=== PATIENT | female | born 1995 | race Caucasian/White ===

== ENCOUNTER 2016-10-08 05:37 | Inpatient (IN) | payer BC ==
[2016-10-08] MEDS ORDERED: Misoprostol 400 MCG (4 X 100 MCG TAB) RECTAL PRN ×2 (06:09→16:08)
[2016-10-08] MEDS ORDERED: Lactated Ringers 500 ML IV ONE (06:09)
[2016-10-08] MEDS ORDERED: Lidocaine 1% 30 ML SDV INJECT PRN (06:09)
[2016-10-08] MEDS ORDERED: Carboprost Tromethamine 250 MCG/1 ML Amp IM PRN ×2 (06:09→16:08)
[2016-10-08] MEDS ORDERED: Ondansetron 4 MG/2 ML SDV IV PRN (06:09)
[2016-10-08] MEDS ORDERED: Acetaminophen 325 MG Tab PO PRN ×2 (06:09→16:08)
[2016-10-08] MEDS ORDERED: Sodium Chloride 0.9% 10 ML Syringe FLUSH PRN ×2 (06:09→16:08)
[2016-10-08] MEDS ORDERED: Methylergonovine 0.2 MG/1 ML Amp IM PRN (06:09)
[2016-10-08] MEDS ORDERED: Oxytocin/Normal Saline 30 UNIT/500 ML BAG IV SCH (06:15)
[2016-10-08] MEDS ORDERED: fentaNYL 100 MCG/2 ML SDV ONE (07:34)
[2016-10-08] MEDS: Lactated Ringers 1,000 ML IV SCH ×2 (07:45→11:39)
--- NOTE | 2016-10-08 08:12 | PCM.PRNOTE ---
- Free Text/Narrative Note: Called to provide labor pain relief via intrathecal to this patient. After monitors on and consent signed, proceeded. With patient in sitting position, sterile prep/drape. Skin wheal at L3-4 with 1% Lido. LP X 1 at L3-4 with 25g pencan spinal needle, via 20g introducer. Positive, clear, free flowing CSF. No heme, no paresthesia. Then 6mg mpf hyperbaric spinal 0.75% marcaine, 20mcg sufenta, 30mcg fentanyl, 0.4ml preservative free normal saline, plus epi wash given intrathecally. Pt then supine, block to around T4. Pt's B/P and FHT's remained stable after, and patient reported no discomfort with subsequent contractions.
--- NOTE | 2016-10-08 08:34 | PCM.POSTAN ---
POST ANESTHESIA ASSESSMENT - MENTAL STATUS Mental Status: alert - VITAL SIGNS Pulse Rate: 76 Resp Rate: 16 Blood Pressure: 107/45 Temperature: 98.3 C - RESPIRATORY Respiratory Status: respiratory rate WNL - CARDIOVASCULAR CV Status: pulse rate WNL - GASTROINTESTINAL GI Status: no symptoms - PAIN Pain Score: 0 - POST OP HYDRATION Hydration Status: adequate & stable - OBSERVATIONS Free Text/Narrative:: Pt without c/o. No PDPH, no PONV, no c/o back pain. No post anesthesia complications noted.
[2016-10-08] MEDS ORDERED: fentaNYL 100 MCG/2 ML SDV ITHECAL ONE (14:49)
[2016-10-08] MEDS ORDERED: Benzocaine/Menthol 20%-0.5% Spray 56 GM Canister TOP PRN (16:08)
[2016-10-08] MEDS ORDERED: Oxytocin 10 Units/1 ML SDV IM PRN (16:08)
[2016-10-08] MEDS ORDERED: Zolpidem 5 MG Tab PO PRN (16:08)
[2016-10-08] MEDS ORDERED: Simethicone 80 MG Tab.Chew PO PRN (16:08)
[2016-10-08] MEDS: Ibuprofen 800 MG Tab PO PRN (17:33)
--- NOTE | 2016-10-08 19:49 | HP ---
HISTORY: This patient is a 21-year-old, 1, para 0 patient, who is now at 40 weeks 2 days gestation. She is seen in the Labor and Delivery area and examined before her delivery takes place. She is in active labor. She does come to Labor and Delivery early in the morning and was approximately 5 cm dilated with the nurse's initial exam. She did experience spontaneous rupture of membranes while in the hospital at about 5:30 a.m. this morning and thin meconium was noted at that time. She is GBS negative. Her thin meconium was thought to progress somewhat and was possibly moderate meconium for the last couple of hours before delivery. She also was known to be Rh negative, on sensitized. She does experience good movement recently and heart tones are category 1. She has nice accelerations and moderate variability. She denies any other significant complications. Please see the EHR as it pertains to the rest of her course in the [facility]. The patient has been followed by Dr. Lucia. ALLERGIES: Penicillin, amoxicillin and sulfa medications. PAST MEDICAL HISTORY: She denies any knowledge of heart, lung, liver, or kidney disease. MEDICATIONS: At present, consist of vitamins. FAMILY HISTORY: Noncontributory. SOCIAL HISTORY: The patient is a nonsmoker and does not use alcohol or any illicit drugs. PHYSICAL EXAMINATION: Please see the EHR for further vital sign detail, which reveals normal vital signs on admission. HEENT: The sclerae are nonicteric. LUNGS: Clear to auscultation. HEART: Regular rhythm without murmur. ABDOMEN: Gravid with heart tones present in the baseline range of about 118 to 122. The heart tones are category 1 with moderate variability and nice accelerations. Estimated weight is approximately 7 pounds 4 ounces. Initial cervical exam by the nurses revealed it to be about 5 cm dilated with vertex presenting. My examination later on is done when she is actually 9 cm to completely dilated with vertex at +1 station, 100% effaced. EXTREMITIES: Reveal trace to 1+ pedal edema. NEUROLOGIC: Grossly intact. IMPRESSION: Term at 40 weeks 2 days by good dating and ultrasounds. She is in active labor. She does have thin meconium to sometimes possibly moderate meconium. heart tones remained category I. The patient will continue pushing, and we do anticipate spontaneous vaginal delivery. Thorough suctioning of the baby will be done while the head is on the perineum because of the meconium-stained fluid. All of her questions have been answered. Please see the admission orders. The patient is Rh negative. [facility] /[id number]
--- NOTE | 2016-10-08 21:28 | DEL ---
DATE: 10/08/2016 DESCRIPTION: Allie has progressed on with even better pushing effort during the latter part of her 2nd stage of labor. Her total 2nd stage of labor is approximately 3 hours and 15 minutes. Heart tones have remained category 1 at all times. She did have only 1 episode of a variable deceleration while she was pushing and this went down to the 60 range for approximately 60 to 70 seconds with good recovery and good variability. This happened at around 12:30 p.m., or so. Please see the electronic health record for further time detail. She did proceed on to have a spontaneous vaginal delivery of a viable female, who had scores of 8 and 9. The weight is pending at this time. The patient did have thin meconium noticed at about 0530 hours earlier this morning when the ruptured membranes occurred spontaneously, and during the last hour or 2 of her pushing effort, we did see a bit more thickening or moderate degree of meconium- stained fluid. As mentioned above, category 1 heart tones were present. She did have the spontaneous vaginal delivery from the occiput anterior position. The baby girl was immediately suctioned as thoroughly as possible on delivery and handed off to Dr. Melo and nursery nurses who agreed with good scores of 8 and 9. A sample of cord blood was obtained and submitted to the lab. The patient is also noted to be Rh negative by history. The placenta was delivered spontaneously and intact from the shiny Nevarez position. Estimated blood loss for the delivery was approximately 200 mL. There were no vaginal or perineal lacerations. IV Pitocin was run in the 3rd stage of labor with the uterus yony down nicely. Her vital signs have been stable at all times. The patient has proceeded on and tolerated this procedure very nicely. She remained stable in the area. Her baby also continues to do well. I have personally verified that the needle, sponge, and instrument count is correct. [facility] /[id number]
[2016-10-08] MEDS: Docusate Sodium 100 MG Cap PO PRN (22:05)
[2016-10-09] MEDS: Docusate Sodium 100 MG Cap PO PRN (08:42)
[2016-10-09] MEDS: Prenatal Multivitamin with Calcium/Folic Acid/Iron Tab PO SCH (08:42)
[2016-10-09] MEDS: Ibuprofen 800 MG Tab PO PRN ×2 (08:42→18:30)
--- NOTE | 2016-10-09 14:11 | PN ---
DATE: 10/09/2016 LOCATION: [facility]. SUBJECTIVE: Allie and her baby are doing well today. Her baby girl had scores of 8 and 9 yesterday. She denies any problems whatsoever today. She is ambulating well and tolerating diet. OBJECTIVE: Her vital signs are normal including being afebrile. Her extremity exam is negative. Her fundus is firm. IMPRESSION: Stable course. PLAN: She will continue with progressive ambulation and please see the orders. Her indirect Jass and Rh testing is still pending. She will be discharged home tomorrow on Monday. Further follow up instructions will be discussed with her at the time of discharge. [facility] /[id number]
--- NOTE | 2016-10-09 18:42 | PCM.POSTAN ---
POST ANESTHESIA ASSESSMENT - MENTAL STATUS Mental Status: alert - VITAL SIGNS Pulse Rate: 74 SaO2: 97 Resp Rate: 18 Blood Pressure: 122/57 Temperature: 36.2 C - RESPIRATORY Respiratory Status: respiratory rate WNL - CARDIOVASCULAR CV Status: pulse rate WNL - GASTROINTESTINAL GI Status: no symptoms - PAIN Pain Score: 0 - POST OP HYDRATION Hydration Status: adequate & stable - OBSERVATIONS Free Text/Narrative:: Pt without c/o. No c/o PONV, no c/o PDPH. No post anesthesia complications noted.
[2016-10-10 09:07] VITALS: BP 126/77
[2016-10-10] MEDS: Prenatal Multivitamin with Calcium/Folic Acid/Iron Tab PO SCH (12:29)
[2016-10-10] MEDS: Docusate Sodium 100 MG Cap PO PRN (12:29)
[2016-10-10] MEDS: Ibuprofen 800 MG Tab PO PRN (12:29)
--- NOTE | 2016-10-12 04:06 | DISCH ---
LOCATION: . HISTORY OF PRESENT ILLNESS: This is a very pleasant, 21-year-old, 1, now para 1 patient, who was at 40 weeks 2 days gestation, has been followed by Dr. Lucia for most of the . Her course has been quite unremarkable. She is known to be GBS negative. She was at 40 weeks 2 days gestation. She did enter Labor and Delivery area early in the morning on Monday10/08/2016 in labor. She did have spontaneous rupture of membranes shortly after coming to the hospital at about 5:30 a.m., and this was thin meconium. Her heart tones have been category 1 during the intrapartum course. She does have allergies penicillin, amoxicillin, and sulfa medications. She also is Rh negative, unsensitized however. HOSPITAL COURSE: She has progressed on very nicely during the course of her labor. She did require about 3 hours and 15 minutes of second stage of labor pushing. She did end up having a very nice spontaneous vaginal delivery and had a baby girl, who had scores of 8 and 9. There was some moderate meconium at delivery and the baby was suctioned very very thoroughly. The baby's weight was later reported as 7 pounds. As mentioned above, she has had category 1 heart tones at all times during the course of her labor. She did have one little incidental spontaneous deceleration at about 12:30 p.m., when she was pushing when the heart tones went down to 60 for 60 to 70 seconds with good recovery after that and good variability and continuing on to have a category 1 heart tones after that. No episiotomy was necessary. Her estimated blood loss was approximately 200 mL. There were no lacerations. Please see the electronic health record for my admission history and physical as well as for my delivery note. She has continued to do well and is discharged home on 10/10/2016 in very good condition. Her diet at discharge is regular. She is ambulating very well and tolerating diet etc. Her examination at discharge also reveals the extremities to be negative. She remains afebrile and her fundus is firm. She is having no problems with her breasts or her legs. The baby is breast feeding quite satisfactorily, I understand. DISCHARGE INSTRUCTIONS: Other discharge instructions consist of please avoiding intercourse for approximately 6 weeks and avoid heavy lifting or strenuous physical activity for approximately 6 weeks[address] She will see Dr. Lucia in the office in approximately 6 weeks and possibly even for a short visit this coming week. Please see the baby's record for the baby's followup appointment. The patient was instructed to please call us at once if any fever, excess pain, excess bleeding, or leg or extremity or breast problems etc. She was encouraged to do progressive ambulation at home. DISCHARGE MEDICATIONS: Consisted of; 1. Ibuprofen or Tylenol p.r.n. 2. She also will use Colace p.r.n. 3. She will continue to take her vitamin with iron. The importance of adequate hydration and healthy well-balanced nutritional measures were again reviewed and discussed with her. FINAL DIAGNOSES: 1. Term , delivered. 2. Rh negative, unsensitized. PROCEDURES: Spontaneous vaginal delivery having viable baby girl with scores of 8 and 9 on 10/08/[address] Carter. [facility] /[id number]
== END 2016-10-10 14:50 | disposition home or self-care (01) | DRG 560 ==
LOC: EDBD → DL.OBCHECK 05:37 → DL.OB 05:57 → OBSVTOIN 13:32
PROVIDERS: ADMIT Family Medicine; ATTEND Family Medicine
PROC: 10E0XZZ Delivery of Products of Conception, External Approach (ICD-10-PCS; principal; 2016-10-08)
DX: O77.0 Labor and delivery complicated by meconium in amniotic fluid (principal); Z3A.40 40 weeks gestation of pregnancy; Z37.0 Single live birth; Z88.0 Allergy status to penicillin; Z88.8 Allergy status to other drugs, medicaments and biological substances
CPT/HCPCS: 36415; 85027; A9270-GY; J2405; J2590; J3010; J7120